=== PATIENT | female | born 1995 | race Caucasian/White ===

== ENCOUNTER → 2019-11-17 | Outpatient (CLI) | payer OTHER | LOC: M PLALAB 09:18 | PROVIDERS: ATTEND Advanced Practice Midwife | DX: O36.80X0 Pregnancy with inconclusive fetal viability, not applicable or unspecified (principal); Z3A.00 Weeks of gestation of pregnancy not specified ==

== ENCOUNTER → 2019-11-23 | Outpatient (CLI) | payer OTHER ==
--- NOTE | 2019-11-24 02:43 | REP ---
Clinical: Dating and viability. Technique: Transabdominal first trimester obstetrical ultrasound with color Doppler evaluation of the ovaries. Findings: Ultrasound examination demonstrates single live intrauterine . Biometrical measurements correspond to 14 weeks 0 days gestational age with estimated date of delivery 05/23/2020. heart rate equals 164 beats per minute. No gross abnormalities are identified. Anterior placenta. Amniotic fluid volume is normal. Cervix measures 3.7 cm in length and appears closed. Right corpus luteal cyst noted. Impression: Single live intrauterine at 14 weeks 0 days gestational age. Complete anatomical assessment should be performed at 19-20 weeks.
== END ==
LOC: M WHC 08:31
PROVIDERS: ATTEND Advanced Practice Midwife
DX: O36.80X0 Pregnancy with inconclusive fetal viability, not applicable or unspecified (principal); Z3A.14 14 weeks gestation of pregnancy

== ENCOUNTER → 2019-12-14 | Outpatient (CLI) | payer OTHER ==
[2019-12-14 14:01] LABS: BASO % 0.3 % (0.0-1.0); EOS # 0.1 10^3/uL (0.0-0.5); EOS % 0.9 % (0.0-3.0); HEMOGLOBIN 12.3 g/dl (12.0-15.5); LYMPH # 1.5 10^3/uL (1.5-5.0); LYMPH % 19.1 % (24.0-44.0); MEAN CORPUSCULAR HEMOGLOBIN 28.9 pg (27.0-33.0); MEAN CORPUSCULAR HGB CONC 32.4 g/dl (32.0-36.5); MEAN CORPUSCULAR VOLUME 89.4 fl (80.0-96.0); MONO # 0.5 10^3/uL (0.0-0.8); MONO % 6.4 % (0.0-5.0); NEUTROPHILS # 5.7 10^3/uL (1.5-8.5); NEUTROPHILS % 72.7 % (36.0-66.0); PLATELET COUNT, AUTOMATED 212 10^3/uL (150-450); RED BLOOD COUNT 4.25 10^6/uL (4.00-5.40); WHITE BLOOD COUNT 7.8 10^3/uL (4.0-10.0)
[2019-12-14 15:04] LABS: HEPATITIS C VIRUS ABY INDEX 0.1 INDEX (<0.8); HIV 1&2 SCREEN CENTAUR NEGATIVE (NEGATIVE); RUBELLA IgG QUALITATIVE IMMUNE (IMMUNE)
[2019-12-14 15:45] LABS: CHLAMYDIA DNA AMPLIFICATION NEGATIVE (NEGATIVE); GC DNA AMPLIFICATION NEGATIVE (NEGATIVE)
== END ==
LOC: M PLALAB 11:38
PROVIDERS: ATTEND Advanced Practice Midwife
DX: Z34.82 Encounter for supervision of other normal pregnancy, second trimester (principal)

== ENCOUNTER → 2019-12-30 | Outpatient (CLI) | payer OTHER ==
--- NOTE | 2019-12-30 11:24 | REP ---
Clinical: Second trimester with vaginal bleeding Comparison: 11/23/2019 . Findings: Examination demonstrates a single live intrauterine in transverse (head to maternal right) presentation. motion is identified by technologist. Placenta is noted posterior and grade I without evidence for placenta previa or abruption. Amniotic fluid volume is normal. Cervix measures 4.8 cm in length and appears closed. No evidence for nuchal cord. Gestational age by LMP 19 weeks 3 days with ENIO 05/22/2020 . Gestational age by current measurements 18 weeks 5 days with ENIO 05/27/2020 FHR equals 143 beats per minute. BPD 4.1 cm 18 weeks 3 days HC 15.8 cm 18 weeks 5 days AC 13.7 cm 19 weeks 1 day FL 3.0 cm 19 weeks 2 day HL 2.9 cm 19 weeks 3 days HC/AC ratio 1.15 Estimated weight 275 grams ( 42nd percentile). Anatomical assessment demonstrates normal structures including cranium, choroid plexus, cavum, cerebellum/posterior fossa, facial features, lungs, four-chamber heart/ventricular outflow tracts, diaphragm, stomach, cord insertion/three-vessel cord, kidneys/bladder, spine, and extremities. Impression: 1. Single live intrauterine in transverse lie demonstrating appropriate interval growth. 2. Anatomical assessment is complete and normal. 3. Posterior grade 1 placenta without evidence for placenta previa. Placental tip is 3.1 cm from the closed internal os.
== END ==
LOC: M WHC 09:55
PROVIDERS: ATTEND Advanced Practice Midwife
DX: Z34.82 Encounter for supervision of other normal pregnancy, second trimester (principal); Z3A.18 18 weeks gestation of pregnancy

== ENCOUNTER → 2020-01-20 | Outpatient (REF) | payer OTHER | LOC: M PLALAB 09:52 | PROVIDERS: ATTEND Advanced Practice Midwife | DX: Z53.9 Procedure and treatment not carried out, unspecified reason (principal) ==

== ENCOUNTER → 2020-02-17 | Outpatient (CLI) | payer OTHER ==
[2020-02-17 17:44] LABS: HEMATOCRIT 36.7 % (36.0-47.0); MEAN CORPUSCULAR HEMOGLOBIN 29.9 pg (27.0-33.0); MEAN CORPUSCULAR HGB CONC 32.7 g/dl (32.0-36.5); MEAN CORPUSCULAR VOLUME 91.5 fl (80.0-96.0); PLATELET COUNT, AUTOMATED 193 10^3/uL (150-450); RED BLOOD COUNT 4.01 10^6/uL (4.00-5.40); WHITE BLOOD COUNT 10.5 10^3/uL (4.0-10.0)
== END ==
LOC: M PLALAB 14:45
PROVIDERS: ATTEND Advanced Practice Midwife
DX: Z34.82 Encounter for supervision of other normal pregnancy, second trimester (principal); Z3A.26 26 weeks gestation of pregnancy

== ENCOUNTER → 2020-04-25 | Outpatient (REF) | payer OTHER ==
[~2020-04-25] MED LIST: PRENTAB9 PO
== END ==
LOC: M PLALAB 15:40
PROVIDERS: ATTEND Advanced Practice Midwife
DX: Z36.89 Encounter for other specified antenatal screening (principal); Z3A.00 Weeks of gestation of pregnancy not specified
CPT/HCPCS: 36415; 87081; 87389; G0463

== ENCOUNTER 2020-05-16 00:24 | Inpatient (IN) | payer OTHER ==
[2020-05-16] VITALS (38 sets, daily range): BP systolic 107–137; BP diastolic 60–91
[~2020-05-16] VITALS: Ht 172.7 cm; Wt 90.4 kg
[2020-05-16] MEDS ORDERED: PRENTAB9 PO (00:40)
[2020-05-16] MEDS ORDERED: OXYTOCIN DRIP 30 UNITS in IV 1 EA IV SCH ×2 (04:00→13:36)
[2020-05-16 04:18] LABS: HEMOGLOBIN 12.4 g/dl (12.0-15.5); MEAN CORPUSCULAR HEMOGLOBIN 30.2 pg (27.0-33.0); MEAN CORPUSCULAR HGB CONC 33.5 g/dl (32.0-36.5); PLATELET COUNT, AUTOMATED 178 10^3/uL (150-450); RED BLOOD COUNT 4.11 10^6/uL (4.00-5.40); WHITE BLOOD COUNT 11.4 10^3/uL (4.0-10.0)
[2020-05-16] MEDS: LR 1,000 ML IV SCH ×2 (04:31→09:32)
[2020-05-16] MEDS ORDERED: FENTANYL 2MCG/ML ROPIVACAINE 0.2% IN 0.9% NACL 100ML IVBAG As Ordered ONE (09:26)
--- NOTE | 2020-05-16 09:53 | HPE ---
DATE OF ADMISSION: 05/16/2020 A 24-year-old G2, P1 female at 39-1/7 weeks' gestation by last menstrual period (LMP) consistent with 14-week ultrasound, estimated date of confinement (EDC) of 05/22/2020 presents with regular contractions every 3-5 minutes for the last several hours. Contractions began to increase in intensity. She denies bleeding. Good movement. There is no loss of fluid. OBSTETRICAL HISTORY: August 2016, a 38-week vaginal delivery, 7 pound 3 ounce female infant. No complications. MEDICAL HISTORY: None. SURGICAL HISTORY: None. ALLERGIES: None. SOCIAL HISTORY: The patient is . She lives at [place]. The patient denies cigarettes, alcohol, or drug use. FAMILY HISTORY: Noncontributory. PHYSICAL EXAMINATION: Blood pressure is 117/61, pulse 85, afebrile. She appears mildly uncomfortable. HEAD AND NECK EXAMINATION: Normal. LUNGS: Clear. HEART: Regular rate and rhythm. ABDOMEN: Nontender, gravid. heart tones category 1. Contractions every 3-7 minutes. STERILE VAGINAL EXAMINATION: 2 cm, 75%, -2 station, vertex, soft. EXTREMITIES: Nontender. LABORATORIES: Blood type is A positive. Group B streptococcus (GBS) negative. ASSESSMENT: A 24-year-old G2, P1 at 39-1/7 weeks' gestation presents in early labor. PLAN: The patient will be admitted on 05/16/2020. She will require augmentation of labor since she is not in active labor. The patient agrees to this. Will use Pitocin to augment labor.
[2020-05-16] MEDS ORDERED: LACTATED RINGER'S 1000 ML IV PRN (11:00)
[2020-05-16] MEDS ORDERED: REFRIGERATOR IV KEYS XX PRN (11:00)
[2020-05-16] MEDS ORDERED: FENTANYL/ROPIVACAINE/NACL BAG 100 ML EPIDURAL SCH (11:00)
[2020-05-16] MEDS ORDERED: EPIDURAL COMMENT XX SCH (11:00)
[2020-05-16] MEDS ORDERED: diphenhydrAMINE 50MG/ML VIAL (J1200) IV PRN (11:00)
[2020-05-16] MEDS ORDERED: EPIDURAL/PCA KEYS XX PRN (11:00)
[2020-05-16] MEDS ORDERED: ePHEDrine SULFATE 25 MG/5 ML(5MG/ML) SYRINGE IV PRN (11:00)
[2020-05-16] MEDS ORDERED: ONDANSETRON 4MG/2ML VIAL IV PRN (11:00)
[2020-05-16] MEDS ORDERED: NALOXONE INJ 0.4MG/1ML VIAL (J2310 PER 1MG) IV PRN (11:00)
[2020-05-16] MEDS ORDERED: DOCUSATE SODIUM 100 MG CAP PO PRN (13:45)
[2020-05-16] MEDS ORDERED: METHYLERGONOVINE MALEATE 0.2 MG TAB PO PRN (13:45)
[2020-05-16] MEDS ORDERED: MEASLES,MUMPS,RUBELLA VACCINE INJ (MMR-II) (90707) SC SCH (13:45)
[2020-05-16] MEDS ORDERED: IBUPROFEN 600MG TAB PO PRN (13:45)
[2020-05-16] MEDS ORDERED: RHOGAM 300 MCG (1500 IU) INJ (J2790) IM SCH (13:45)
[2020-05-16] MEDS ORDERED: DIBUCAINE 1% OINTMENT 30GM TOP PRN (13:45)
[2020-05-16] MEDS ORDERED: ACETAMINOPHEN TAB 650MG DOSE (2X325MG) PO PRN (13:45)
[2020-05-16] MEDS ORDERED: ACETAMINOPHEN 500 MG TAB PO PRN (13:45)
--- NOTE | 2020-05-16 13:55 | DN ---
DATE OF DELIVERY: 05/16/2020 Ghada is a 24-year-old 2, para 2-0-0-2 now, who was admitted to labor and delivery with painful contractions and latent labor. She requested induction of labor, and intravenous (IV) Pitocin was started. She did utilize an epidural for her labor coping. She reached a complete dilation at 1257. She pushed to a normal spontaneous vaginal delivery of a live male in left occipitoanterior (SHIRLENE) position with restitution to right occipitotransverse (ROT) position at 1311. There was no nuchal cord. The shoulders delivered spontaneously and the corpus immediately followed. The male was placed on the maternal abdomen crying and active. His mouth and nares were bulb suctioned. The cord was clamped times two once pulsations ceased and cut by the father of the baby under my direction. Spontaneous expulsion of an intact placenta with three-vessel cord by Henry mechanism was at 1316. Uterine hemostasis achieved with IV Pitocin rapid infusion and uterine fundal massage. Estimated blood loss 200 ounces. Perineum and vagina were inspected and noted to be intact. [place] male weighed 8 pounds 5 ounces, 3770 grams, scores 9 and 9. Mother is going to breastfeed her son, and the family have named him Mikal. At the close of delivery, lap counts and instrument counts were correct and verified.
[2020-05-17] MEDS: IBUPROFEN 800 MG TAB PO PRN ×2 (01:03→19:32)
[2020-05-17 05:32] VITALS: BP 114/66
[2020-05-17] MEDS: PRENATAL VITAMINS CHEWABLE TABLET PO SCH (07:40)
[2020-05-17 18:00] VITALS: BP 121/79
[2020-05-18 05:34] VITALS: BP 120/58
[2020-05-18] MEDS ORDERED: ACET-683 PO (07:02)
[2020-05-18] MEDS ORDERED: IBUP80TA PO (07:02)
[2020-05-18] MEDS: PRENATAL VITAMINS CHEWABLE TABLET PO SCH (07:30)
[2020-05-18] MEDS: IBUPROFEN 800 MG TAB PO PRN (07:31)
== END 2020-05-18 12:15 | disposition home or self-care (01) | DRG 807 ==
LOC: M LDO 00:24 → M LDI 03:54 → M OBS 16:57
PROVIDERS: ADMIT Specialist; ATTEND Specialist
PROC: 10E0XZZ Delivery of Products of Conception, External Approach (ICD-10-PCS; principal; 2020-05-16)
PROC: 3E033VJ Introduction of Other Hormone into Peripheral Vein, Percutaneous Approach (ICD-10-PCS; 2020-05-16)
DX: O80 Encounter for full-term uncomplicated delivery (principal); Z37.0 Single live birth; Z3A.39 39 weeks gestation of pregnancy

== ENCOUNTER → 2020-08-27 | Outpatient (REF) | payer OTHER ==
[~2020-08-27] MED LIST changes: +ACET-683 PO; +ASPI81TA26 PO; +CLOP75TA2 PO; +ENAL1TAB46 PO; +IBUP80TA PO; +METO1TAB32 PO; +PANT40TA29 PO
== END ==
LOC: M SFHCWAGY 17:03
PROVIDERS: ATTEND Advanced Practice Midwife
DX: Z12.4 Encounter for screening for malignant neoplasm of cervix (principal)
CPT/HCPCS: G0123; G0463

== ENCOUNTER 2020-09-30 09:35 | Emergency (ER) | payer OTHER ==
[~2020-09-30] VITALS: Ht 172.7 cm; Wt 78.8 kg
[~2020-09-30 09:35] MED LIST changes: -ASPI81TA26 PO; -CLOP75TA2 PO; -ENAL1TAB46 PO; -METO1TAB32 PO; -PANT40TA29 PO
[2020-09-30 10:06] LABS: BASO % 0.5 % (0.0-1.0); EOS # 0.2 10^3/uL (0.0-0.5); EOS % 2.4 % (0.0-3.0); HEMATOCRIT 40.2 % (36.0-47.0); HEMOGLOBIN 13.6 g/dl (12.0-15.5); LYMPH # 2.1 10^3/uL (1.5-5.0); LYMPH % 27.2 % (24.0-44.0); MEAN CORPUSCULAR HEMOGLOBIN 29.2 pg (27.0-33.0); MEAN CORPUSCULAR HGB CONC 33.8 g/dl (32.0-36.5); MEAN CORPUSCULAR VOLUME 86.3 fl (80.0-96.0); MONO # 0.5 10^3/uL (0.0-0.8); MONO % 7.1 % (0.0-5.0); NEUTROPHILS # 4.8 10^3/uL (1.5-8.5); NEUTROPHILS % 62.3 % (36.0-66.0); PLATELET COUNT, AUTOMATED 234 10^3/uL (150-450); RED BLOOD COUNT 4.66 10^6/uL (4.00-5.40); WHITE BLOOD COUNT 7.6 10^3/uL (4.0-10.0)
[2020-09-30] MEDS ORDERED: ONDANSETRON 4MG/2ML VIAL IV ONE (10:15)
[2020-09-30] MEDS ORDERED: ISOVUE-370 76% 100ML VIAL As Ordered ONE (10:18)
[2020-09-30 10:38] LABS: ALBUMIN 4.2 GM/DL (3.2-5.2); ALT/SGPT 16 U/L (12-78); BILIRUBIN,DIRECT 0.2 MG/DL (0.0-0.2); BILIRUBIN,TOTAL 0.6 MG/DL (0.2-1.0); BLOOD UREA NITROGEN 14 MG/DL (7-18); CALCIUM LEVEL 9.3 MG/DL (8.5-10.1); CARBON DIOXIDE LEVEL 26 MEQ/L (21-32); CHLORIDE LEVEL 108 MEQ/L (98-107); CREATININE FOR GFR 0.76 MG/DL (0.55-1.30); GLOMERULAR FILTRATION RATE > 60.0 (>60); GLUCOSE, FASTING 91 MG/DL (70-100); POTASSIUM SERUM 3.1 MEQ/L (3.5-5.1); SODIUM LEVEL 140 MEQ/L (136-145); TOTAL PROTEIN 7.5 GM/DL (6.4-8.2)
[2020-09-30 10:39] LABS: FREE T4 1.09 NG/DL (0.76-1.46); LIPASE 241 U/L (73-393)
--- NOTE | 2020-09-30 10:39 | REP ---
INDICATION: ches tpain, 13/0.6, pending poc hcg COMPARISON: None. TECHNIQUE: Axial contrast enhanced images from the thoracic inlet to the upper abdomen using pulmonary embolus technique with multiplanar re-formations. 75 ml Isovue 370 intravenous contrast material administered without complication. This CT examination was performed using the following dose reduction techniques: Automated exposure control, adjustment of mA and/or kv according to the patient's size, and use of iterative reconstruction technique. FINDINGS: Satisfactory enhancement of the pulmonary vasculature is achieved and no filling defects are identified to suggest pulmonary embolus. Further evaluation of the mediastinum demonstrates normal thoracic aorta, heart and pericardium. The bilateral lung guerrero are well aerated and clear without consolidation pleural effusion or pneumothorax. Tracheobronchial tree is patent. No nodule or mass lesion is identified. No adenopathy noted. Surrounding musculoskeletal structures intact IMPRESSION: No evidence for pulmonary embolus. No acute mediastinal or pleural parenchymal process. <Electronically signed by Rolando De La Rosa > 09/30/20 [id number]
[2020-09-30] MEDS: MORPHINE 2 MG/ML 1ML VIAL (J2270) IV PRN ×4 (10:40→16:48)
[2020-09-30 10:44] LABS: MAGNESIUM LEVEL 1.8 MG/DL (1.8-2.4)
--- NOTE | 2020-09-30 10:56 | REP ---
INDICATION: CHEST PAIN COMPARISON: None. TECHNIQUE: Portable AP view of the chest FINDINGS: The mediastinum and cardiac silhouette are stable and within normal limits for portable technique. The lung guerrero are clear without acute consolidation, effusion, or pneumothorax. Skeletal structures are intact. IMPRESSION: No acute cardiopulmonary process appreciated. <Electronically signed by Rolando De La Rosa > 09/30/20 1354
[2020-09-30] MEDS ORDERED: POTASSIUM CHLORIDE 10 MEQ SR TABLET PO ONE (11:15)
[2020-09-30] MEDS ORDERED: GI COCKTAIL 50ML BTL(HYOSCYAMINE/MAALOX/LIDOCAINE VISCOUS)(1:3:1) PO ONE ×2 (14:45→15:00)
[2020-09-30] MEDS ORDERED: HEPARIN DRIP 25,000 UNITS in IV 1 EA IV SCH (14:59)
[2020-09-30] MEDS ORDERED: NS 500 ML IV SCH (14:59)
[2020-09-30] MEDS ORDERED: HEPARIN SOD (PORCINE) 5000UNITS/ML 1ML VIAL/SYRINGE IV ONE (15:00)
[2020-09-30] MEDS ORDERED: NS 500 ML IV ONE (15:00)
[2020-09-30] MEDS ORDERED: CLOPIDOGREL 300 MG TAB (PLAVIX) PO ONE (15:00)
[2020-09-30] MEDS ORDERED: ASPIRIN 81 MG CHEW TABLET PO ONE (15:00)
[2020-09-30 15:13] LABS: INR 1.06
[2020-09-30 15:14] LABS: PARTIAL THROMBOPLASTIN TIME 32.5 SECONDS (24.2-38.5)
[2020-09-30] MEDS ORDERED: NITROGLYCERIN 0.4 MG SUBL TABLET As Ordered ONE (15:35)
[2020-09-30] MEDS: NITROGLYCERIN 0.4 MG SUBL TABLET SL PRN ×2 (15:37→15:46)
[2020-09-30] MEDS ORDERED: NITROGLYCERIN 2% OINT 1 GM *U/D* PKT TOP ONE (16:15)
[2020-09-30 16:18] VITALS: BP 127/94
[2020-09-30 16:51] VITALS: BP 124/91
--- NOTE | 2020-09-30 19:02 | ECGEPIP ---
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
--- NOTE | 2020-09-30 20:02 | ECGEPIP ---
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
== END 2020-09-30 16:55 | disposition short-term general hospital (02) ==
LOC: M ED 09:35 → EDBD 09:35 → M ED 16:55
DX: I21.4 Non-ST elevation (NSTEMI) myocardial infarction (principal); R00.1 Bradycardia, unspecified; Z20.828 Contact with and (suspected) exposure to other viral communicable diseases; Z79.899 Other long term (current) drug therapy
CPT/HCPCS: 71045; 71275; 80047; 80048; 80076; 83690; 83735; 84439; 84443; 84484; 84702; 85025; 85610; 85730; 93005; 93041; 94760; 96361; 96374; 96375; 96376; 99285; J1644; J2270; J2405; Q9967; U0002

== ENCOUNTER 2020-10-15 11:21 | Inpatient (IN) | payer OTHER ==
[~2020-10-15] VITALS: Ht 172.7 cm; Wt 77.0 kg
[2020-10-15] MEDS ORDERED: CLOP75TA2 PO (11:54)
[2020-10-15] MEDS ORDERED: ASPI81TA26 PO (11:54)
[2020-10-15] MEDS ORDERED: PANT40TA29 PO (11:54)
[2020-10-15] MEDS ORDERED: METO1TAB32 PO (11:54)
[2020-10-15] MEDS ORDERED: ENAL1TAB46 PO (11:54)
--- NOTE | 2020-10-15 12:06 | REP ---
INDICATION: CHEST PAIN. COMPARISON: Comparison chest x-ray September 30, 2020.. TECHNIQUE: Sitting AP portable chest x-ray. FINDINGS: Monitoring electrodes overlie the chest. The lungs are well inflated and clear. The pleural angles are sharp. Heart size is normal. Pulmonary vasculature is not increased. No significant bony abnormality. IMPRESSION: Negative portable chest x-ray. <Electronically signed by Joey Marti > 10/15/20 1209
[2020-10-15 12:20] LABS: BASO % 0.5 % (0.0-1.0); EOS # 0.1 10^3/uL (0.0-0.5); EOS % 2.3 % (0.0-3.0); HEMATOCRIT 37.9 % (36.0-47.0); HEMOGLOBIN 12.6 g/dl (12.0-15.5); LYMPH # 1.7 10^3/uL (1.5-5.0); LYMPH % 27.6 % (24.0-44.0); MEAN CORPUSCULAR HGB CONC 33.2 g/dl (32.0-36.5); MEAN CORPUSCULAR VOLUME 87.3 fl (80.0-96.0); MONO # 0.4 10^3/uL (0.0-0.8); MONO % 6.4 % (0.0-5.0); NEUTROPHILS # 3.8 10^3/uL (1.5-8.5); NEUTROPHILS % 62.9 % (36.0-66.0); PLATELET COUNT, AUTOMATED 242 10^3/uL (150-450); RED BLOOD COUNT 4.34 10^6/uL (4.00-5.40); WHITE BLOOD COUNT 6.1 10^3/uL (4.0-10.0)
[2020-10-15 12:56] LABS: BLOOD UREA NITROGEN 14 MG/DL (7-18); CALCIUM LEVEL 9.2 MG/DL (8.5-10.1); CARBON DIOXIDE LEVEL 28 MEQ/L (21-32); CHLORIDE LEVEL 109 MEQ/L (98-107); CK-MB VALUE MASS 1.2 NG/ML (<3.6); CPK CREATINE PHOSPHOKINASE 84 U/L (26-192); CREATININE FOR GFR 0.63 MG/DL (0.55-1.30); GLOMERULAR FILTRATION RATE > 60.0 (>60); GLUCOSE, FASTING 75 MG/DL (70-100); MB/CK RELATIVE INDEX 1.43 (< OR =4); POTASSIUM SERUM 3.9 MEQ/L (3.5-5.1); SODIUM LEVEL 141 MEQ/L (136-145); TROPONIN I < 0.02 NG/ML (< 0.10)
[2020-10-15 13:15] LABS: INR 1.11; PROTHROMBIN TIME 14.5 SECONDS (12.5-14.3)
[2020-10-15 13:16] LABS: PARTIAL THROMBOPLASTIN TIME 31.8 SECONDS (24.2-38.5)
[2020-10-15 15:13] LABS: CK-MB VALUE MASS < 1.0 NG/ML (<3.6); CPK CREATINE PHOSPHOKINASE 80 U/L (26-192); MB/CK RELATIVE INDEX 1.25 (< OR =4); TROPONIN I < 0.02 NG/ML (< 0.10)
[2020-10-15] MEDS ORDERED: HEPARIN DRIP 25,000 UNITS in IV 1 EA IV SCH (15:44)
[2020-10-15] MEDS ORDERED: HEPARIN SOD (PORCINE) 5000UNITS/ML 1ML VIAL/SYRINGE IV ONE (15:45)
--- NOTE | 2020-10-15 19:45 | HPE ---
HISTORY AND PHYSICAL DATE OF ADMISSION: 10/15/2020 INDICATION: Chest pain, coronary artery disease. HISTORY: Mrs. Walls is a very pleasant 25-year-old female who presented on September 30 with chest discomfort. She had mild troponin elevation and was transferred to [facility] for coronary angiography. 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 No intervention was performed. She was put on Aspirin and Plavix, low dose beta barbara and TUCKER inhibitor and was discharged home. She tells me that she was doing quite well, did not have any chest pain or discomfort until this morning. Approximately 9:00 a.m. she started having heaviness, pressure-like discomfort that was retrosternal without obvious radiation. She had several bouts that lasted approximately 20 or 30 minutes each. Eventually she decided to come to the hospital around 11:00. The ECG revealed precordial T-wave inversions. They were in leads V1-V6 but also in leads I, II, AVL. Her troponin was negative. She was given IV Heparin and after consultation with [facility], the decision was made to keep her here locally. She reports since then she had one brief recurrence that lasted about 10 or 15 minutes but has been pain free and asymptomatic otherwise. At the time of my dictation, she is feeling comfortable. She had numerous questions but otherwise denies any additional symptoms. Specifically she denies any dizziness, palpitations. There has been no paroxysmal nocturnal dyspnea (PND) or orthopnea. PAST MEDICAL HISTORY: Dissection of the LAD on September 30, otherwise negative. She denies any prior medical problems of any sort. SURGICAL HISTORY: Denies. FAMILY HISTORY: Both parents and sister are all healthy. There are no cardiac conditions running in her family. SOCIAL HISTORY: The patient is . She is a mother of two children. Her son is now four months old. The first child is about three years old. The first and second pregnancies were completely uneventful. She does not smoke and never did. She does not drink alcohol. REVIEW OF SYSTEMS: She denies any recent fevers or chills, nausea or vomiting, diarrhea. There is no history of bleeding problems. She does have IUD. There is no history of musculoskeletal problems and the rest of review of systems is negative. OUTPATIENT MEDICATIONS INCLUDE: - Aspirin 81 mg daily - Plavix 75 mg daily - Toprol XL 12.5 mg daily - Enalapril 2.5 mg twice a day - Protonix 40 mg daily ALLERGIES: No allergies. PHYSICAL EXAMINATION: Mrs. Walls is a young white female. She appears comfortable in no distress. Vital signs: Blood pressure 122/70, heart rate has been mostly in the 60s. She is afebrile. Saturation is in the high 90s without supplemental oxygen. She is alert, oriented and appropriate. Neck: JVP is not elevated. No carotid bruits. No goiter. Lungs are clear to auscultation with good air movement. Heart exam reveals a regular rhythm. I do not appreciate any rub, gallop, or murmur. Abdomen is soft and nontender, no guarding, no hepatosplenomegaly. Extremities are free of edema and good peripheral pulses. Neurologically she is intact. She is alert and oriented, appropriate. Moves all four extremities. LABORATORY DATA: CBC is completely normal. Basic metabolic panel also has been normal. Two sets of cardiac enzymes at 12:07 and 1425 are normal. INR is 1.1. Chest x-ray is unremarkable. She tested negative for SARS, influenza A and B, and RSV. There are two ECGs. One is from 11:38 and the second one is from 1413 which revealed sinus rhythm. There is poor R wave progression and T wave inversion in leads V1-V6 and also to a lesser degree in I, II, AVL. The ECG from 1413, the T-wave inversion appeared to be more prominent even though the lead position is probably slightly changed. ASSESSMENT AND PLAN: Mrs. Walls is a 25-year-old female who has a history of spontaneous dissection of coronary artery on September 30 believed to be related to recent . She was found on angiogram to have spontaneous recanalization with residual LAD disease about 75% and decision was made for medical therapy. Based on the description, she was essentially asymptomatic since until earlier today. The ECG reveals deep T-wave inversions. It is unclear whether this is a new development because similar EKG abnormalities can be indicative of normal course of EKG evolution after myocardial infarction, but nevertheless this looks worrisome and indicates a possibility of another unstable situation. We will continue monitoring her on telemetry. Besides Aspirin and Plavix she will be anticoagulated. She was given IV Heparin but I am going to switch her to Lovenox for the ease of administration and less risk for complications. If her troponin remains negative and there will be no prominent evolution on EKG and her echocardiogram does not reveal any new abnormalities, I assume that she might be able to be discharged tomorrow evening even though most likely I think we will keep her one additional day. If there is evidence for active ischemia by prominent EKG evolution or troponin elevation, I will transfer her to [place] for further evaluation.
[2020-10-15] MEDS ORDERED: ENALAPRIL MALEATE 5 MG TAB PO SCH (21:00)
[2020-10-15] MEDS ORDERED: METOPROLOL SUCC *XL* 25MG TAB (TopROL *XL*) PO ONE (21:00)
[2020-10-15 21:18] VITALS: BP 126/81
[2020-10-15] MEDS: ENOXAPARIN 80MG/0.8ML SYRINGE (J1650 PER 10MG) SC SCH (21:26)
[2020-10-15] MEDS ORDERED: PILL CUTTER 1 EACH XX PRN (21:45)
[2020-10-16] VITALS (7 sets, daily range): BP systolic 101–119; BP diastolic 53–72
--- NOTE | 2020-10-16 00:35 | ECGEPIP ---
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
--- NOTE | 2020-10-16 00:41 | ECGEPIP ---
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
[2020-10-16 06:04] LABS: HEMATOCRIT 38.1 % (36.0-47.0); HEMOGLOBIN 12.9 g/dl (12.0-15.5); MEAN CORPUSCULAR HEMOGLOBIN 29.5 pg (27.0-33.0); MEAN CORPUSCULAR HGB CONC 33.9 g/dl (32.0-36.5); PLATELET COUNT, AUTOMATED 245 10^3/uL (150-450); RED BLOOD COUNT 4.38 10^6/uL (4.00-5.40); WHITE BLOOD COUNT 7.8 10^3/uL (4.0-10.0)
--- NOTE | 2020-10-16 08:07 | IPN ---
PROGRESS NOTE DATE: 10/16/2020 SUBJECTIVE: Mrs. Walls had a relatively uneventful night. She slept for most of the night, but apparently after she was woken up this morning for her EKG, she suddenly experienced a sensation of discomfort in her chest. At this time, she describes more like dyspnea rather than pain per se. She got a little panicky and it took about 20-30 minutes before the sensation subsided. She otherwise did not have any other problems. Telemetry did not reveal any arrhythmias. She feels good during my exam. OBJECTIVE: VITAL SIGNS: Blood pressure 114/57, heart rate mostly in the 60s. She is afebrile. Saturation 100% on room air. Fluid balance was not properly recorded. Her weight was not recorded this morning as of yet. GENERAL: She is alert and oriented. Her JVP is not high. LUNGS: Clear. HEART: Reveals regular rhythm. I do not appreciate a gallop, rub, or murmur. ABDOMEN: Soft. EXTREMITIES: Free of edema. NEUROLOGIC: She is intact. LABORATORY DATA: She has a normal CBC. Her troponin remain negative as well. Electrocardiogram this morning is minimally changed since yesterday and reveals a sinus rhythm with deep precordial T-wave inversions and also T-wave inversions in leads 1, 2, and aVL. ASSESSMENT AND PLAN: Mrs. Walls is a 25-year-old female who suffered myocardial infarction on 09/28, due to coronary artery dissection in left anterior descending (LAD) and geography reveals still residual, but recannalized disease, and she was treated conservatively. She presented yesterday with chest discomfort that had several features of angina, but without any evidence of myocardial necrosis. EKG reveals precordial T-wave inversions that are new compared to three weeks ago; but nevertheless, could represent normal evolution of EKG after myocardial infarction. At this point, I am going to wait for the results of the echocardiogram. I encouraged the patient to ambulate today. Provided her further course is uneventful, I believe we can let her go home either tonight or tomorrow morning. In the long horizon, time will tell how much of left ventricle recovery will occur. Provided the echocardiogram reveals some worrisome abnormalities, then obviously we may delay the discharge or even consider the possibility of transferring her for another angiogram.
[2020-10-16] MEDS ORDERED: PANTOPRAZOLE 40MG TAB (PROTONIX) PO SCH (09:00)
[2020-10-16] MEDS ORDERED: ASPIRIN 81 MG CHEW TABLET PO SCH (09:00)
[2020-10-16] MEDS ORDERED: CLOPIDOGREL 75 MG TAB PO SCH (09:00)
[2020-10-16] MEDS: ENALAPRIL MALEATE 5 MG TAB PO SCH ×2 (09:51→20:17)
[2020-10-16] MEDS: ENOXAPARIN 80MG/0.8ML SYRINGE (J1650 PER 10MG) SC SCH ×2 (09:52→20:15)
[2020-10-16] MEDS ORDERED: ASPI81CH8 PO (18:57)
[2020-10-16] MEDS ORDERED: PANT40TA29 PO (18:57)
[2020-10-16] MEDS ORDERED: CLOP75TA2 PO (18:57)
[2020-10-16] MEDS ORDERED: METO1TAB32 PO (18:57)
[2020-10-16] MEDS ORDERED: INFLUENZA QUADRIVALENT PF VACCINE 0.5ML SYRINGE IM ONE (20:00)
[2020-10-16] MEDS ORDERED: METOPROLOL SUCC *XL* 25MG TAB (TopROL *XL*) PO SCH (21:00)
--- NOTE | 2020-10-16 21:42 | ECGEPIP ---
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 Electronically Signed on 10-16-2020 21:42:10 EST by Igor Kebede
--- NOTE | 2020-10-16 22:51 | DSES ---
DISCHARGE SUMMARY DATE OF ADMISSION: 10/15/2020 DATE OF DISCHARGE: 10/16/2020 PRINCIPAL DIAGNOSIS: Chest pain, abnormal EKG, recent myocardial infarction. BRIEF HOSPITAL COURSE: Mrs. Walls is a 25-year-old female who presented on September 28 with chest discomfort and troponin elevation. Coronary angiography at [facility] revealed evidence for dissection in left anterior descending coronary artery with wall motion abnormality involving anteroapical wall and overall LV EF approximately 35 to 40%. No coronary intervention was performed. She was started on aspirin, Plavix and very small doses of Enalapril and Toprol XL, and was discharged home. She was doing clinically well until yesterday morning when she presented to our Emergency Room after recurrent episodes of retrosternal pressure like squeezing chest discomfort radiating to her jaw and left upper extremity. She had several bouts of this discomfort and there was some associated dyspnea that she describes as inability to take a deep breath. On presentation, the EKG revealed deep precordial T wave inversions, which were new compared to her prior EKGs from our facility, but her troponin was negative even with repeated blood draws. Consequently, the decision was to keep patient for observation in our facility. I added anticoagulation in the form of initially I.V. Heparin and then Lovenox to her regimen. She had one additional episode of chest discomfort on the day of admission, but then symptoms subsided and she has done well. She was monitored on telemetry a little over 24 hours. Her subsequent troponin the following day, on the date of discharge, was again negative. EKG continues to demonstrate deep precordial T wave inversions and also T wave inversions in leads 1, AVL and 2. Patient is feeling well. She was able to ambulate in her room without any difficulty. Echocardiogram revealed the presence of normal left ventricular size with very small apical wall motion abnormality and overall ejection fraction estimated at approximately 60%. There was no significant valvular disease. Consequently, I believe it is safe to discharge the patient home. I will schedule follow-up appointment in our office next week. DISCHARGE MEDICATIONS: 1. Aspirin 81 mg daily. 2. Plavix 75 mg daily. 3. Toprol XL 25 mg at night. 4. Pantoprazole 40 mg daily. I discontinued Enalapril because she no longer has significant left ventricular systolic dysfunction and her blood pressure was soft on admission. DISCHARGE INTSRUCTIONS: She was instructed to go back to the Emergency Room if she has additional episodes of prolonged discomfort. The etiology of her symptoms at this point is unclear. It does not appear to be clearly ischemic in nature, but I certainly cannot rule out it with definitive certainty. DISCHARGE DIAGNOSES: 1. Post infarction angina. 2. Ischemic cardiomyopathy.
[2020-10-17] MEDS ORDERED: INFLUENZA QUADRIVALENT PF VACCINE 0.5ML SYRINGE IM ONE (09:00)
--- NOTE | 2020-10-17 11:56 | ECHO ---
DATE OF PROCEDURE: 10/16/2020 Age: 25 Gender: Female Height: 173 cm Weight: 77 kg REFERRING PHYSICIAN: Omar Neil M.D. INDICATION: Chest pain. MEASUREMENTS: IVS 0.8 cm LV 4.8 cm LVPW 0.8 cm LA 3.3 cm Aorta 2.7 cm IVC 1.2 cm Mitral E wave velocity 99 cm/s Mitral A wave 56 cm/s E prime septal 7.2 cm/s E prime lateral 12.3 cm/s FINDINGS: This study is of acceptable technical quality. Underlying sinus rhythm. Normal LV size with overall preserved LV systolic function and estimated EF around 60%. There is an apical wall motion abnormality, a very small segment is essentially akinetic. Remaining left ventricular segments have preserved contractility. The right ventricle was relatively poorly seen, but appears to have normal size and systolic function. Both atria appear normal. All four cardiac valves were reasonably well seen and appear normal. Trivial pericardial effusion is noted. Inferior vena cava is normal size. Aortic root and aortic arch appear normal. Abdominal aorta was poorly seen. Doppler interrogation reveals competent aortic valve. There is trace mitral insufficiency. There is no tricuspid or pulmonic stenosis or insufficiency. Mitral inflow pattern and tissue Doppler imaging of the mitral annulus reveal normal diastolic function. CONCLUSIONS: 1. Study is of good technical quality. Underlying sinus rhythm. 2. Normal left ventricular (LV) size with small apical wall motion abnormality and overall preserved left ventricular systolic function, estimated left ventricular ejection fraction (LVEF) approximately 60%. Normal diastolic function. 3. No valvular disease. 4. Trivial pericardial effusion. 5. Normal central venous pressure. MTDD
== END 2020-10-16 21:16 | disposition home or self-care (01) | DRG 316 ==
LOC: M ED 11:21 → M ED INP 18:44 → ENRESERV 19:08 → M PCU 21:15
PROVIDERS: ADMIT Internal Medicine Cardiovascular Disease; ATTEND Internal Medicine Cardiovascular Disease
DX: I23.7 Postinfarction angina (principal); I25.5 Ischemic cardiomyopathy; Z79.82 Long term (current) use of aspirin; Z79.899 Other long term (current) drug therapy

== ENCOUNTER → 2023-08-17 | Outpatient (REF) | payer OTHER ==
[~2023-08-17] MED LIST changes: +ASPI81CH8 PO; +ASPI81TA26 PO; +CLOP75TA2 PO; +ENAL1TAB46 PO; +METO1TAB32 PO; +PANT40TA29 PO
== END ==
LOC: M SFHCWAGY 18:00
PROVIDERS: ATTEND Advanced Practice Midwife
DX: Z12.4 Encounter for screening for malignant neoplasm of cervix (principal)
CPT/HCPCS: G0123; G0463